=== PATIENT | female | born 1950 | race Caucasian/White ===

== ENCOUNTER 2016-08-06 10:44 | Emergency (ER) | payer BC ==
[2016-08-06 11:03] VITALS: BP 134/81
--- NOTE | 2016-08-06 12:24 | UC ---
Throat Pain/Nasal Enmanuel HPI - HPI Summary HPI Summary: 10 or more days ago pt developed achiness, fever, SUE, nausea, and near-emesis, followed by a couple days of diarrhea and stomach upset. Was feeling better, then had slow-onset cold symptoms, mainly nasal congestion and discharge with facial pressure starting about 1 week ago. Nasal discharge is foul and pt feels she needs an antibiotic. Denies wheezing, fever, trouble breathing, or cough. - History of Current Complaint Chief Complaint: UCGeneralIllness Stated Complaint: CHEST CONGESTION, AND COUGH Time Seen by Provider: 08/06/16 11:56 Hx Obtained From: Patient ?: No Onset/Duration: Gradual Onset, Lasting Days Severity: Moderate Associated Signs & Symptoms: Positive: Sinus Discomfort, Nasal Discharge, Fever. Negative: Wheezing - Allergies/Home Medications Allergies/Adverse Reactions: Allergies Allergy/AdvReac Type Severity Reaction Status Date / Time No Known Allergies Allergy Verified 05/01/15 18:41 Home Medications: Home Medications Cold Med 08/06/16 [History] Ledipasvir/Sofosbuvir 90/(NF) [Harvoni 90/400 (NF)] 08/06/16 [History] PMH/Surg Hx/FS Hx/Imm Hx Previously Healthy: Yes Endocrine History Of: Denies: Diabetes - Surgical History Surgical History: Yes Surgery Procedure, Year, and Place: breast biopsy, cholecystectomy, appendectomy , facial surgeries, left shoulder surgeries - Family History Known Family History: Positive: Cardiac Disease - Social History Occupation: Employed Full-time Alcohol Use: Rare Substance Use Type: None Smoking Status (MU): Never Smoked Tobacco Review of Systems Constitutional: Fever - resolved, Fatigue Skin: Negative Eyes: Negative ENT: Sore Throat, Nasal Discharge Respiratory: Negative Cardiovascular: Negative Gastrointestinal: Negative Genitourinary: Negative Motor: Negative Neurovascular: Negative Musculoskeletal: Negative Neurological: Negative Psychological: Negative All Other Systems Reviewed And Are Negative: Yes Physical Exam Triage Information Reviewed: Yes Appearance: Well-Appearing, No Pain Distress, Well-Nourished Vital Signs: Initial Vital Signs Temp 99.4 F 08/06/16 10:57 Pulse 68 08/06/16 10:57 Resp 16 08/06/16 10:57 BP 134/81 08/06/16 10:57 Pulse Ox 94 08/06/16 10:57 Vital Signs Reviewed: Yes Eye Exam: Normal Eyes: Positive: Conjunctiva Clear ENT: Positive: Hearing grossly normal, Nasal congestion, Nasal drainage, TMs normal, Other: - sinus congestion evident in voice. Negative: Muffled/hoarse voice Dental Exam: Normal Neck exam: Normal Neck: Positive: Supple, Nontender, No Lymphadenopathy Respiratory Exam: Normal Respiratory: Positive: Chest non-tender, Lungs clear, Normal breath sounds, No respiratory distress, No accessory muscle use Cardiovascular Exam: Normal Cardiovascular: Positive: RRR, No Murmur Neurological Exam: Normal Psychological Exam: Normal Skin Exam: Normal Throat Pain/Nasal Course/Dx - Course Course Of Treatment: Discussed bacterial s/sx along with course of pt's illness , I recommend waiting 2-3 days to see if there is spontaneous improvement before trying an antibiotic. Pt understands and agrees. - Differential Dx/Diagnosis Provider Diagnoses: URI. sinusitis Discharge - Discharge Plan Condition: Stable Disposition: HOME Prescriptions: DOXYcycline CAP(*) [DOXYcycline 100MG CAP(*)] 100 mg PO BID #14 cap Patient Education Materials: Upper Respiratory Infection (ED), Rhinosinusitis ( ED) Referrals: Edwige Lyons MD [Primary Care Provider] - Additional Instructions: SINUSITIS: You have sinusitis, an inflammation of the sinus cavities of the face. The sinuses are air-filled chambers which open into the inside of the nose. It can be caused by viral infection (a head cold), bacteria, or irritants (such as cleaning products). When it is bacterial, bacteria and pus fill a sinus, causing pain, drainage, and fever. Bacterial sinusitis is treated with antibiotics, though they are not always helpful. Often, expectorants (to thin the sinus mucous) or decongestants (to reduce swelling) are prescribed as well. Avoid chemical fumes, pollens, dusts, and smoke (especially cigarette smoke ). Keep the air humidified in your bedroom and work area and take plenty of liquids by mouth. This condition can be serious if the infection spreads. If your symptoms worsen, or if you develop severe headache, high fever, stiff neck, or a rash, you must call the doctor or return for re-evaluation. WE DISCUSSED, YOU DO NOT HAVE SIGNS OF A BACTERIAL ILLNESS AT THIS TIME AND SO DO NOT NEED TO START THIS ANTIBIOTIC. PLEASE TAKE THE ENTIRE COURSE OF ANTIBIOTICS IF YOU DEVELOP FEVER OR HAVE SUDDEN WORSENING AT ANY TIME, OR IF YOU FAIL TO HAVE SOME IMPROVEMENT IN THE NEXT 3 DAYS. Call or return if you develop increasing fever, shortness of breath, chest pain , bloody sputum, or otherwise worsen. If you have not improved at all after several days, contact your primary care physician or return here.
== END 2016-08-06 12:23 | disposition home or self-care (01) ==
LOC: UCEAST 10:44
DX: J06.9 Acute upper respiratory infection, unspecified (principal); J32.9 Chronic sinusitis, unspecified; Z90.49 Acquired absence of other specified parts of digestive tract
CPT/HCPCS: 99212; G0463

== ENCOUNTER 2017-10-27 14:55 | Day surgery (SDC) | payer MEDICARE ==
--- NOTE | 2017-10-27 08:06 | HP ---
ADMITTING HISTORY AND PHYSICAL: DATE OF ADMISSION: 10/27/17 ADMITTING DIAGNOSES: Calculus, right ureter. PLANNED PROCEDURE: Right ureteroscopy, possible laser and stent insertion. HISTORY OF PRESENT ILLNESS: Evelyn Lyles is a 67-year-old lady who had episodic pelvic pressure and pain for the last 3 to 4 weeks. She initially had discomfort in the pelvic area mostly on the right side about a month ago. She was evaluated in [place] and had a CT scan and several ultrasounds there, which showed a persistent 7-mm calculus at the right ureterovesical junction. She was seen in my office on 10/24/17 and an ultrasound revealed a persistent 7- mm calculus at the right ureterovesical junction. At this time, on the most recent ultrasound, there was no hydronephrosis and I offered her the option of continuing conservative therapy and see if the stone would be able to pass. Since the symptoms have been present for about a month according to her, she would now like to have the stone removed and is being brought in for right ureteroscopy, possible laser and stent insertion. PAST MEDICAL HISTORY: Significant for chronic hepatitis C. PAST SURGICAL HISTORY: Significant for: 1. Appendectomy. 2. Tonsillectomy. 3. Cholecystectomy. 4. Left shoulder surgery after an accident. MEDICATIONS ON ADMISSION: None. ALLERGIES: No known drug allergies. FAMILY HISTORY: Negative for stones. SMOKING HISTORY: She occasionally will smoke 1 or 2 cigarettes a day, but very rarely. REVIEW OF SYSTEMS: She is otherwise in excellent health. There is no history of diabetes mellitus or any other major systemic illness. PHYSICAL EXAMINATION GENERAL: Reveals a pleasant mildly uncomfortable appearing middle-aged lady. VITAL SIGNS: Blood pressure is 110/70, pulse 60 per minute, regular, temperature 96, oxygen saturation 98% on room air. LUNGS: Clear bilaterally. CARDIOVASCULAR: Regular rate and rhythm. S1, S2. ABDOMEN: Soft with mild right flank tenderness. IMPRESSION: I had a detailed discussion with Mrs. Lyles regarding the options including continuing conservative management. I also discussed the procedure of right ureteroscopy, laser lithotripsy, and stent insertion and detailed including possible risks of bleeding, infection, injury to the ureter. In addition, she also has a small 3.4-mm calculus in the right kidney, which at the present time will not require any treatment. PLAN: Right ureteroscopy, possible laser and stent insertion. [id number]/[facility] #: [id number] [facility] CENTERJacquelin
[2017-10-27] MEDS ORDERED: Gentamicin ADULT (*) 160 MG in NS 0.9% 100 ML* 100 ML IVPB ONE (15:00)
[2017-10-27] MEDS ORDERED: Iohexol 180 (CONTRAST) 10 ML SDV IV ONE (16:41)
[2017-10-27] MEDS ORDERED: Lidocaine 2% PF * 5 ML VIAL ONE (17:41)
[2017-10-27] MEDS ORDERED: fentaNYL* 50 MCG/ML 2 ML VIAL (100 MCG VIAL) ONE (17:41)
[2017-10-27] MEDS ORDERED: Propofol* 10 MG/ML 20 ML BTL IV PUSH ONE (17:41)
[2017-10-27] MEDS ORDERED: oxyCODONE TAB* 5 MG TAB PO PRN (18:07)
[2017-10-27] MEDS ORDERED: fentaNYL* 50 MCG/ML 2 ML VIAL (100 MCG VIAL) IV PRN (18:07)
[2017-10-27] MEDS ORDERED: DiMENhydriNATE IV* 50 MG/ML VIAL IV PUSH PRN (18:07)
[2017-10-27] MEDS ORDERED: Acetaminophen TAB* 325 MG PO PRN (18:07)
[2017-10-27] MEDS ORDERED: Naloxone* 0.4 MG/ML 1 ML VIAL IV PRN (18:07)
--- NOTE | 2017-10-27 18:44 | RAD ---
INDICATION: Stent placement COMPARISONS: October 24, 2017 TECHNIQUE: Fluoroscopy was provided for a retrograde pyelogram and stent placement. Total fluoroscopy time is: 7 seconds FINDINGS: Spot images demonstrate contrast within the renal collecting system. A ureteral stent is noted. IMPRESSION: FLUOROSCOPY WAS PROVIDED FOR A RETROGRADE PYELOGRAM AND STENT PLACEMENT CPT II Codes: G9500
[2017-10-27] MEDS ORDERED: Ibuprofen TAB* 600 MG ONE (19:08)
[2017-10-27] MEDS ORDERED: oxyCODONE TAB* 5 MG TAB ONE (20:32)
[2017-10-27] MEDS ORDERED: Solifenacin(NF) 5 MG TAB PO ONE (21:00)
[2017-10-27 21:05] VITALS: BP 150/68
--- NOTE | 2017-10-27 22:39 | OP ---
DATE OF OPERATION: 10/27/17 - [facility] DATE OF : 54 SURGEON: Sebastien Gagnon MD ANESTHESIOLOGIST: Dr. Hoff. ANESTHESIA: General. PRE-OP DIAGNOSIS: Calculus, right ureter. POST-OP DIAGNOSIS: Calculus, right ureter. OPERATIVE PROCEDURE: Cystoscopy, right retrograde pyelogram, right ureteroscopy , laser lithotripsy of right ureteral calculus and removal of calculus fragments , and right stent insertion. COMPLICATIONS: None. POSTOPERATIVE CONDITION: Stable. STENT USED: A 7-Kyrgyz stent, right ureter. OPERATIVE FINDINGS: A fairly large 8 to 9 mm calculus, right ureterovesical junction with some surrounding edema and inflammation. POSTOPERATIVE CONDITION: Stable. INDICATIONS: Evelyn Lyles is a 67-year-old lady who has had a persistent calculus at the right ureterovesical junction for several weeks. She would like to have this removed and is now being brought in for right ureteroscopy after a thorough discussion of procedure and possible risks. DESCRIPTION OF PROCEDURE: After induction of general anesthesia, the patient was placed in dorsal lithotomy position. Sequential compression devices were in place and functioning. Initial cystoscopy revealed normal-appearing bladder. The tip of the calculus could just be visualized just inside the right orifice. The remainder of the bladder was unremarkable. A guidewire was introduced into the right ureter and advanced into the proximal collecting system. A 6-Kyrgyz semi-rigid ureteroscope was introduced after initial retrograde pyelogram, which revealed mild fullness of the right collecting system. In the distal ureter, 8 to 9 mm calculus was noted with mild surrounding edema and inflammation. Using a 550 micron holmium laser, this was successfully fragmented and all of the fragments were removed and sent for analysis. A 7-Kyrgyz stent was introduced and positioned under fluoroscopy with good proximal and distal positioning obtained. The bladder was emptied. The patient tolerated the procedure satisfactorily and was transferred back to the recovery area in stable condition. [id number]/[facility] #: [id number]
== END 2017-10-27 21:06 | disposition home or self-care (01) ==
LOC: OR 14:55
PROVIDERS: ATTEND Urology
DX: N20.1 Calculus of ureter (principal); B18.2 Chronic viral hepatitis C; F17.210 Nicotine dependence, cigarettes, uncomplicated
CPT/HCPCS: 74420; 82365; 88300; A9270-GY; C1876; J1580; J2704; J3010

== ENCOUNTER → 2018-07-10 07:05 | Day surgery (SDC) | payer MEDICARE ==
--- NOTE | 2018-06-19 07:30 | HP ---
HISTORY AND PHYSICAL: DATE OF ADMISSION: 07/10/18 CHIEF COMPLAINT: Left breast cancer. HISTORY OF PRESENT ILLNESS: The patient is a 68-year-old female with a history of a firm palpable mass in the left breast, was worked up with mammography, MRI , and core biopsy of the left breast that was positive for invasive carcinoma. The patient has been admitted for lumpectomy and sentinel lymph node biopsy of the left breast. PAST MEDICAL HISTORY: Remarkable for history of hepatitis, history of Lyme disease with meningitis, history of depression, prior breast biopsy that was negative, history of appendectomy and cholecystectomy. GYNECOLOGIC HISTORY: Had 3 pregnancies and 1 miscarriage. Last menstrual period was 15 years ago. MEDICATIONS: The patient takes no medications. ALLERGIES: She has no known allergies. FAMILY HISTORY: Remarkable for history of history of stroke and cancer. SOCIAL HISTORY: The patient is a nonsmoker and nondrinker. REVIEW OF SYSTEMS: Contributory. Infectious disease: History of Lyme disease , completely treated and history of hepatitis, treated as well. The patient denies any history of diabetes or cardiorespiratory problems. However, she does have pectus excavatum and states that when she runs fast, she gets short of breath. She denies any cardiac history. PHYSICAL EXAMINATION GENERAL: The patient is alert and oriented, in no acute distress. HEAD AND NECK: Reveals no neck nodes or masses. LUNGS: Clear to auscultation bilaterally. HEART: Regular without murmurs. CHEST: Reveals pectus excavatum. BREASTS: The right breast is completely unremarkable. The left breast reveals a palpable mass at 6 o'clock measuring approximately 2 to 3 cm in diameter; however, there appears to be bruising as there was a recent biopsy performed. The axilla on the left side reveals a palpable 1-cm lymph node at the base of the axilla. No other nodes are palpable. On the right side, no nodes are palpable. EXTREMITIES: Otherwise unremarkable. No evidence of clubbing. Excellent palpable pulses. DIAGNOSTIC IMPRESSION: Left breast cancer. The plan is to proceed with lumpectomy and sentinel lymph node biopsy. We have discussed at length different options including no treatment and the possibility of mastectomy. The patient wants to proceed with conservation breast surgery. For this reason , the patient is undergoing lumpectomy and sentinel lymph node biopsy. [id number]/[facility] #: [id number] [facility]
[~2018-07-10 07:05] MED LIST: Buffered Lidocaine 1% SYRIN* 1 ML/SYRINGE INTRADERM ONE; Bupivacaine 0.5% W/EPI SDV* 30 ML VIAL ONE; Dexamethasone IV* 4 MG/ML 1 ML (4 MG) IV SLOW PU ONE; Dexamethasone IV* 4 MG/ML 1 ML (4 MG) ONE; DiMENhydriNATE IV* 50 MG/ML VIAL IV PUSH PRN; Famotidine IV* 10 MG/ML 2 ML (20 mg) IV ONE; Famotidine IV* 10 MG/ML 2 ML (20 mg) ONE; Lactated Ringers 1000 ML Bag* 1,000 ML IV SCH; Lidocaine 1% INJ* 10 MG/ML 30 ML SDV ONE; Lidocaine 2% PF * 5 ML VIAL ONE; Lidocaine 2.5%/Prilocain 2.5%* 5 GM TUBE ONE; Methylene Blue 0.5 %* 50 MG/10 ML AMP IV ONE; Naloxone* 0.4 MG/ML 1 ML VIAL IV PRN; Propofol* 10 MG/ML 20 ML BTL ONE; ceFAZolin 2 GM PREMIX in ORs 2 GM/50 ML BAG IVPB ONE; fentaNYL* 50 MCG/ML 2 ML VIAL (100 MCG VIAL) IV PRN; fentaNYL* 50 MCG/ML 2 ML VIAL (100 MCG VIAL) ONE
[2018-07-10 15:29] VITALS: BP 127/71
--- NOTE | 2018-07-10 20:17 | OP ---
DATE OF OPERATION: 07/10/18 [facility] DATE OF : 54 SURGEON: Jeronimo Hamilton MD ANESTHESIA: General. PRE-OP DIAGNOSIS: Left breast carcinoma. POST-OP DIAGNOSIS: Left breast carcinoma. OPERATIVE PROCEDURE: 1. Lumpectomy of the left breast. 2. Reading lymph node biopsy. ESTIMATED BLOOD LOSS: Less than 30 cc. INDICATIONS: The patient had undergone as an outpatient an ultrasound-guided biopsy of the left breast mass consistent with carcinoma of the left breast. The patient at this time was admitted to the hospital for sentinel lymph node localization followed by lumpectomy and sentinel lymph node biopsy. DESCRIPTION OF PROCEDURE: The patient was taken to the procedure room. She underwent proper identification of site of surgery. She had undergone a successful localization of the sentinel lymph node. The films were reviewed as well as the patient. The patient was then taken to the operating room. She was placed in the supine position. She was prepped and draped in the usual sterile fashion. Under general anesthesia and after proper identification of the patient and site of surgery and time-out, we then proceeded to perform an ultrasound in the area where the sentinel lymph node had been marked, which was marked in the upper corner of the outer quadrant of the left chest. An ultrasound of this area revealed no evidence of lymph node. The navigator was placed and the signal was higher into the axilla behind the pectoralis muscle. It was felt that the markings were not adequate, but rather the sentinel lymph node was behind the pectoralis major muscle. At this point, we then proceeded with the sentinel lymph node biopsy first. Marcaine 0.25% with epinephrine was used to infiltrate at the base of the axilla right behind the edge of the pectoralis major muscle. The incision was carried down through the skin and subcutaneous tissue. The deltopectoral fascia was then opened and using the navigator, one could localize easily the sentinel lymph node. It was stained and blue from the methylene blue. It was approximately 1 cm in size and the navigator reading in the area was up to 38. After this was done, dissection was carried out. The vessels surrounding it were clipped, divided. The sentinel lymph node was then tested outside the patient's body with a reading in the 400 to 500s and the 10 second reading average of 1100. At this point, it was felt that this was the sentinel lymph node we searched in the area where it was marked and in the axilla, no radioactivity was noted anymore and at this point, we proceeded to close the incision, subcutaneous tissue with 4-0 Vicryl__ ___ and the skin with a subcuticular 4-0 Prolene and Steri-Strips. After this was done, a Tegaderm was applied to the area and we then proceeded to perform the lumpectomy. The lump was located at 6 o'clock, palpable, a large mass. After this was done, a transverse incision was made at approximately 6 o'clock 2 cm below the areola. The incision was carried down through the skin and subcutaneous tissue. The breast tissue was then palpated. The margins of at least a centimeter were then marked to remove the breast tissue and the lump and block and after this was completed, it was felt that the mass was too close to the medial superior margin and extra tissue of approximately a centimeter was removed and marked as well. The markings were placed in sutures and the mass was oriented with sutures short superior, long lateral for both the lump itself and the true medial margin as well. The area was checked for hemostasis and controlled with the electrocautery. There was a rather large space in the area. A Erik-Meléndez drain was brought out through a separate incision, 7- [place] Islander, and the incision was closed with subcutaneous 4-0 Vicryl suture and the skin with a subcuticular 4-0 Prolene suture and Steri-Strips. A light pressure dressing was applied to the left breast. The patient tolerated the procedure well and she was taken in good condition to the recovery room. [id number]/[facility] #: [id number] WILLIAM
== END | disposition home or self-care (01) ==
LOC: OR 07:05
PROVIDERS: ATTEND Surgery
DX: C50.812 Malignant neoplasm of overlapping sites of left female breast (principal); Z87.891 Personal history of nicotine dependence
CPT/HCPCS: 78195; 88307; 88342; 88360; A9270-GY; A9541; C1776; J0690; J1100; J2704; J3010

== ENCOUNTER 2024-01-19 17:21 | Inpatient (IN) ==
[2024-01-19] MEDS: levETIRAcetam 1000MG IVPREMIX 1,000 MG/100 ML BAG IVPB ONE ×2 (18:00→18:59)
[2024-01-19] MEDS: Lactated Ringers 1000 ml BAG 1,000 ML IV ONE ×2 (18:01→20:45)
[2024-01-19 18:10] LABS: ABS Basophils 0.1 10^3/uL (0.0-0.1); ABS Lymphocytes 1.2 10^3/uL (1.0-4.8); ABS Monocytes 0.5 10^3/uL (0.0-0.9); ABS Neutrophils 10.7 10^3/uL (1.5-7.6); ABS Nucleated RBC 0.01 10^3/ul; Hematocrit 35.8 % (35-45); Lymphocyte % 9.7 %; Mean Corpuscular Hemoglobin 31.8 pg (27-33); Mean Corpuscular Hgb Conc 33.7 g/dL (31-36); Mean Corpuscular Volume 94.5 fL (80-97); Nucleated Red Blood Cells % 0.1 %/100WBC (0.0-0.8); Platelet Count 249 10^3/uL (150-450); Red Blood Count 3.79 10^6/uL (3.63-4.92); Red Cell Distribution Width 15.1 % (12-17); White Blood Count 12.5 10^3/uL (3.8-11.8)
[2024-01-19 18:20] LABS: Activated Partial Thrombo Time 27.2 seconds (26.0-38.0); INR 1.43 (0.83-1.13)
[2024-01-19 18:23] LABS: ALT 26 U/L (7-52); Albumin 3.1 g/dL (3.2-5.2); Albumin/Globulin Ratio 0.9 (1-3); Alkaline Phosphatase 100 U/L (35-149); Blood Urea Nitrogen 14 mg/dL (6-24); CO2 Carbon Dioxide 23 mmol/L (22-32); Calcium 7.4 mg/dL (8.6-10.3); Chloride 98 mmol/L (101-111); Cholesterol 141 mg/dL; Creatinine, Serum 0.52 mg/dL (0.51-0.95); Globulin 3.3 g/dL (2-4); Glucose 139 mg/dL (70-100); HDL Cholesterol 50.6 mg/dL; LDL Cholesterol 80 mg/dL; Sodium 130 mmol/L (135-145); Total Bilirubin 0.7 mg/dL (0.2-1.0); Total Protein 6.4 g/dL (6.4-8.9); Triglycerides 52 mg/dL; eGFR CKD-EPI 99.3 (>60)
[2024-01-19 18:31] LABS: Anion Gap 9 mmol/L (2-16)
[2024-01-19] MEDS ORDERED: Rocuronium 50 mg VIAL 10 mg/ml 5 ml VIAL (50 mg) ONE (19:48)
[2024-01-19] MEDS ORDERED: Succinylcholine 200 mg VIAL 20 mg/ml 10 ml VIAL (200 mg) ONE (19:48)
[2024-01-19] MEDS ORDERED: LORazepam 2 mg VIAL 1 ml ONE (19:51)
[2024-01-19] MEDS: LORazepam 2 mg VIAL 1 ml IV PUSH ONE (19:55)
[2024-01-19 19:57] LABS: Direct Bilirubin 0.1 mg/dL (0.03-0.18); Indirect Bilirubin 0.8 mg/dL (0.3-1.0); Potassium Redraw 4.3 mmol/L (3.5-5.0); Total Bilirubin 0.9 mg/dL (0.2-1.0)
[2024-01-19] MEDS ORDERED: Propofol 10 mg/ml 100 ML BTL 1,000 MG/100 ML BTL ONE (19:59)
[2024-01-19] MEDS ORDERED: fentaNYL 100 mcg/2 ml 50 MCG/ML VIAL IV SLOW PU PRN (20:07)
[2024-01-19] MEDS: Propofol 10 mg/ml 100 ML BTL 1,000 MG/100 ML BTL IV SCH (20:41)
[2024-01-19] MEDS: Etomidate 20 mg/10 ml 2 MG/ML 10 ml VIAL IV ONE (20:43)
[2024-01-19] MEDS: Rocuronium 50 mg VIAL 10 mg/ml 5 ml VIAL (50 mg) IV ONE (20:43)
[2024-01-19] MEDS: NS 0.9% 1000 ml BAG 1,000 ML IV.FLUID IV ONE (20:44)
[2024-01-19] MEDS: Enoxaparin 40 MG/0.4 ML SYR SUBCUT SCH (22:10)
[2024-01-19] MEDS: Famotidine IV 10 MG/ML 2 ml VIAL (20 mg) IV SLOW PU SCH (22:10)
[2024-01-19] MEDS: Chlorhexidine MOUTHWASH 0.12% 15 ML UDC TOPICAL SCH (22:10)
[2024-01-19 22:46] LABS: Urine Appearance Clear; Urine Bilirubin Negative (Negative); Urine Blood 1+ (Negative); Urine Color Light-Yellow; Urine Glucose Negative (Negative); Urine Ketones Trace (Negative); Urine Nitrite Negative (Negative); Urine Protein Trace (Negative); Urine Specific Gravity 1.032 (1.002-1.030); Urine Urobilinogen Negative (Negative); Urine pH 6.5 (5.0-8.0)
[2024-01-19 22:55] LABS: Urine Bacteria Absent /HPF (Absent); Urine Red Blood Cell 3+(>10/hpf) /HPF (0-Trace); Urine Squamous Epithelial Cell Present /HPF (Absent); Urine White Blood Cell Trace(0-5/hpf) /HPF (0-Trace)
[2024-01-20 05:09] LABS: ABS Eosinophils 0.1 10^3/uL (0.0-0.5); ABS Lymphocytes 1.2 10^3/uL (1.0-4.8); ABS Neutrophils 9.4 10^3/uL (1.5-7.6); ABS Nucleated RBC 0.01 10^3/ul; Eosinophil % 0.9 %; Hematocrit 35.1 % (35-45); Hemoglobin 11.8 g/dL (11.5-14.3); Mean Corpuscular Hemoglobin 31.7 pg (27-33); Mean Corpuscular Hgb Conc 33.6 g/dL (31-36); Mean Corpuscular Volume 94.3 fL (80-97); Nucleated Red Blood Cells % 0.1 %/100WBC (0.0-0.8); Platelet Count 210 10^3/uL (150-450); Red Blood Count 3.72 10^6/uL (3.63-4.92); White Blood Count 11.7 10^3/uL (3.8-11.8)
[2024-01-20 05:33] LABS: Anion Gap 6 mmol/L (2-16); Blood Urea Nitrogen 13 mg/dL (6-24); CO2 Carbon Dioxide 24 mmol/L (22-32); Calcium 7.6 mg/dL (8.6-10.3); Chloride 98 mmol/L (101-111); Creatinine, Serum 0.41 mg/dL (0.51-0.95); Glucose 121 mg/dL (70-100); Sodium 128 mmol/L (135-145); eGFR CKD-EPI 105.1 (>60)
[2024-01-20] MEDS: Acetaminophen IV 1 GM/100ML 1,000 MG/100 ML BAG IV PRN (05:35)
[2024-01-20] MEDS: Norepinephrine 4 MG/250mL D5W 4,000 MCG/250 ML BAG IV SCH (06:08)
[2024-01-20 06:46] LABS: Potassium Redraw 3.8 mmol/L (3.5-5.0)
[2024-01-20 07:28] LABS: Magnesium 1.6 mg/dL (1.9-2.7)
[2024-01-20] MEDS ORDERED: levETIRAcetam IV 750 MG in NS 0.9% 100 ml BAG 100 ML IVPB SCH (09:00)
[2024-01-20] MEDS: levETIRAcetam IV 750 MG in NS 0.9% 100 ml BAG 100 ML IVPB SCH (09:33)
[2024-01-20] MEDS: Gadoteridol (CONTRAST) 279.3 MG/ML 10 ML IV ONE (11:33)
[2024-01-20] MEDS ORDERED: methylPREDNISolone SOD SUCC 1000 MG ML VIAL IVPB ONE (11:41)
[2024-01-20 11:49] LABS: TSH Ultra Thyroid Stim Horm 0.63 mcIU/mL (0.34-5.60)
[2024-01-20] MEDS: LaCOSAMide VIAL 50 MG in NS 0.9% 50 ML 50 ML IV SCH ×2 (12:07→12:40)
[2024-01-20] MEDS: Iodixanol (CONTRAST) 320 MG/ML 100 ML SDV IV ONE (12:08)
[2024-01-20] MEDS: KCL 20 MEQ/100 ML IVPREMIX 20 MEQ/100 ML BAG IV SCH (12:20)
[2024-01-20] MEDS: Magnesium Sulfate 2 gm BAG 2 GM/50 ML BAG IV ONE (12:20)
[2024-01-20] MEDS: methylPREDNISolone SOD SUCC 1000 MG in NS 0.9% 100 ML IVPB ONE (13:21)
[2024-01-20] MEDS: Acyclovir IV 540 MG in NS 0.9% 100 ml BAG 100 ML IVPB SCH (13:34)
[2024-01-20] MEDS: Midazolam PREMIXBAG 1 MG/ML NS 100 ML IV SCH (14:31)
[2024-01-20] MEDS: Thiamine 100 MG/ML 2 ml VIAL 500 MG in NS 0.9% 250 ml 250 ML IV SCH (16:40)
[2024-01-20] MEDS: THIAMINE IV SCH (20:40)
[2024-01-20] MEDS: NS 0.9% IV SCH (20:40)
[2024-01-21 04:59] LABS: ABS Basophils 0.1 10^3/uL (0.0-0.1); ABS Monocytes 0.4 10^3/uL (0.0-0.9); ABS Neutrophils 14.7 10^3/uL (1.5-7.6); ABS Nucleated RBC 0.01 10^3/ul; Hematocrit 37.1 % (35-45); Hemoglobin 12.7 g/dL (11.5-14.3); Lymphocyte % 6.4 %; Mean Corpuscular Hemoglobin 32.1 pg (27-33); Mean Corpuscular Hgb Conc 34.2 g/dL (31-36); Mean Corpuscular Volume 93.9 fL (80-97); Mean Platelet Volume 7.9 fL (7.5-11.2); Nucleated Red Blood Cells % 0.1 %/100WBC (0.0-0.8); Platelet Count 329 10^3/uL (150-450); Red Blood Count 3.95 10^6/uL (3.63-4.92); Red Cell Distribution Width 15.6 % (12-17); White Blood Count 16.2 10^3/uL (3.8-11.8)
[2024-01-21 05:30] LABS: ALT 37 U/L (7-52); Albumin 3.1 g/dL (3.2-5.2); Albumin/Globulin Ratio 0.9 (1-3); Alkaline Phosphatase 106 U/L (35-149); Anion Gap 6 mmol/L (2-16); Blood Urea Nitrogen 14 mg/dL (6-24); CO2 Carbon Dioxide 23 mmol/L (22-32); Calcium 7.7 mg/dL (8.6-10.3); Chloride 103 mmol/L (101-111); Creatinine, Serum 0.49 mg/dL (0.51-0.95); Globulin 3.5 g/dL (2-4); Glucose 164 mg/dL (70-100); Magnesium 2.7 mg/dL (1.9-2.7); Sodium 132 mmol/L (135-145); Total Bilirubin 0.6 mg/dL (0.2-1.0); Total Protein 6.6 g/dL (6.4-8.9); eGFR CKD-EPI 100.7 (>60)
[2024-01-21] MEDS: methylPREDNISolone SOD SUCC 1,000 MG in NS 0.9% 100 ml BAG 100 ML IVPB SCH (08:59)
[2024-01-21] MEDS ORDERED: Artificial Tear OPHTH.OINT 3.5 GM BOTH EYES PRN (09:56)
[2024-01-21] MEDS: LaCOSAMide VIAL 100 MG in NS 0.9% 50 ML 50 ML IV SCH (12:12)
[2024-01-21 12:31] LABS: Potassium Redraw 4.7 mmol/L (3.5-5.0)
[2024-01-21 13:55] LABS: Body Fluid Source Cerebral Spinal
[2024-01-21 14:09] LABS: CSF Glucose 96 mg/dL (40-70)
[2024-01-21 14:56] LABS: Body Fluid Appearance Clear; Body Fluid Color Colorless; Body Fluid Mono 10 %; Body Fluid Total Cells Counted 200
[2024-01-21 14:59] LABS: CSF Tube # 4
[2024-01-21 15:03] LABS: CSF Body Fluid WBC 19 /mcL
[2024-01-21] MEDS: Thiamine IV 100 MG in NS 0.9% 50 ML Q24H IV SCH (16:09)
[2024-01-21] MEDS: Midazolam PREMIXBAG 1 MG/ML NS 100 ML IV SCH (23:17)
[2024-01-21] MEDS: Propofol 10 mg/ml 100 ML BTL 1,000 MG/100 ML BTL IV SCH (23:22)
[2024-01-22 04:29] LABS: ABS Basophils 0.1 10^3/uL (0.0-0.1); ABS Lymphocytes 0.9 10^3/uL (1.0-4.8); ABS Monocytes 0.7 10^3/uL (0.0-0.9); ABS Neutrophils 14.3 10^3/uL (1.5-7.6); ABS Nucleated RBC 0.01 10^3/ul; Hematocrit 36.8 % (35-45); Hemoglobin 12.3 g/dL (11.5-14.3); Lymphocyte % 5.5 %; Mean Corpuscular Hemoglobin 31.6 pg (27-33); Mean Corpuscular Hgb Conc 33.3 g/dL (31-36); Mean Corpuscular Volume 94.8 fL (80-97); Mean Platelet Volume 7.7 fL (7.5-11.2); Platelet Count 288 10^3/uL (150-450); Red Blood Count 3.88 10^6/uL (3.63-4.92); Red Cell Distribution Width 15.8 % (12-17)
[2024-01-22 04:44] LABS: Albumin/Globulin Ratio 0.9 (1-3); Calcium 7.6 mg/dL (8.6-10.3); Creatinine, Serum 0.5 mg/dL (0.51-0.95); Globulin 3.4 g/dL (2-4); Magnesium 2.8 mg/dL (1.9-2.7); Potassium 4.8 mmol/L (3.5-5.0); Total Bilirubin 0.5 mg/dL (0.2-1.0); Total Protein 6.4 g/dL (6.4-8.9); eGFR CKD-EPI 100.2 (>60)
[2024-01-22] MEDS: Pantoprazole VIAL 40 MG VIAL IV SCH (09:01)
[2024-01-22] MEDS: LaCOSAMide VIAL 200 MG in NS 0.9% 50 ML 50 ML IV ONE (14:59)
[2024-01-22] MEDS: Midazolam 5 mg/5 ml VIAL 1 mg/ml 5 ml VIAL (5 mg) IV SLOW PU ONE (15:09)
[2024-01-22] MEDS: LaCOSAMide VIAL 100 MG in NS 0.9% 50 ML 50 ML IV ONE (15:09)
[2024-01-22] MEDS: Acyclovir IV 540 MG in NS 0.9% 100 ml BAG 100 ML IVPB SCH (16:33)
[2024-01-22] MEDS: LaCOSAMide VIAL 200 MG in NS 0.9% 50 ML 50 ML IV SCH (21:54)
[2024-01-23 04:30] LABS: ABS Lymphocytes 0.8 10^3/uL (1.0-4.8); ABS Monocytes 0.8 10^3/uL (0.0-0.9); ABS Neutrophils 10.1 10^3/uL (1.5-7.6); ABS Nucleated RBC 0.01 10^3/ul; Hematocrit 35.8 % (35-45); Hemoglobin 12.2 g/dL (11.5-14.3); Lymphocyte % 6.8 %; Mean Corpuscular Hemoglobin 32.4 pg (27-33); Mean Corpuscular Hgb Conc 34.2 g/dL (31-36); Mean Corpuscular Volume 94.8 fL (80-97); Mean Platelet Volume 7.8 fL (7.5-11.2); Nucleated Red Blood Cells % 0.1 %/100WBC (0.0-0.8); Platelet Count 257 10^3/uL (150-450); Red Blood Count 3.78 10^6/uL (3.63-4.92); Red Cell Distribution Width 15.9 % (12-17); White Blood Count 11.7 10^3/uL (3.8-11.8)
[2024-01-23 04:56] LABS: Albumin 2.8 g/dL (3.2-5.2); Albumin/Globulin Ratio 0.9 (1-3); Calcium 7.4 mg/dL (8.6-10.3); Creatinine, Serum 0.45 mg/dL (0.51-0.95); Magnesium 2.8 mg/dL (1.9-2.7); Potassium 4.8 mmol/L (3.5-5.0); Total Bilirubin 0.5 mg/dL (0.2-1.0); Total Protein 5.8 g/dL (6.4-8.9); eGFR CKD-EPI 102.8 (>60)
[2024-01-23] MEDS ORDERED: Immune Globulin IV Order (CPOE ENTRY PROTOCOL) IV SCH (10:00)
[2024-01-23 19:33] VITALS: BP 119/70
[2024-01-23 19:57] LABS: HSV 1 PCR, CSF Negative (Negative); HSV 2 PCR, CSF Negative (Negative)
[2024-01-26 15:33] LABS: CSF Oligoclonal Bands 6 bands; Oligoclonal Proteins Interpret 1 bands (<2); Serum Oligoclonal Bands 5 bands
[2024-01-27 10:11] LABS: Albumin, S 3300 mg/dL; IgG Index, CSF 0.96 (<=0.85); IgG, CSF 10.7 mg/dL (<=8.1); IgG, S 1480 mg/dL (767 - 1590); IgG/Albumin, CSF 0.43 (<=0.21); IgG/Albumin, S 0.45 (<=0.40); Synthesis Rate, CSF 26.52 mg/24 h (<=12)
== END 2024-01-23 19:32 | disposition short-term general hospital (02) | DRG 98 ==
LOC: ED 17:21 → EDHOLD 19:48 → SUATTDRO 19:48 → ICU 21:12
PROVIDERS: ADMIT Internal Medicine; ATTEND Internal Medicine Critical Care Medicine